=== PATIENT | female | born 1975 | race Hispanic/Latino ===

== ENCOUNTER 2021-06-09 07:11 | Outpatient (CLI) | payer BC ==
--- NOTE | 2021-06-09 10:28 | Magnetic Resonance Report ---
MR brain wo/w con INDICATION / CLINICAL INFORMATION: 45 years Female; OPTIC NEURITIS. TECHNIQUE: Multiplanar, multisequence MR images of the brain were obtained. COMPARISON: None available. FINDINGS: BRAIN / INTRACRANIAL CONTENTS: The brain demonstrate appropriate signal characteristics on the combin ation of sequences. The ventricular system is within normal limits in size and configuration. No extr a-axial fluid collections or significant mass effect is identified. The diffusion imaging is unremark able without evidence of recent infarction. No intracranial enhancing lesions are appreciated at. CRANIOCERVICAL JUNCTION: No significant abnormality. VASCULAR FLOW-VOIDS: No significant abnormality. ORBITS: There are dictated pre and postcontrast axial and coronal T1 and T2-weighted imaging of the o rbits were obtained as part of this exam. The motion degrades image quality. However, there is sugges tion of mild relative enhancement involving right optic nerve that this may be exacerbated by the deg ree of motion and positioning though correlation would be needed given the patient's history of optic neuritis. The optic globes demonstrate appropriate size and configuration. No intravitreous lesions are identif ied at. The extraocular muscles are normal in caliber and symmetric. No focal orbital lesions are skip ntified. The lacrimal glands are unremarkable. No suprasellar lesions or mass effect upon the optic c hiasm is identified. SINUSES / MASTOIDS: No significant abnormality in the visualized paranasal sinuses or mastoid air alisha ls. ADDITIONAL FINDINGS: None. IMPRESSION: 1. The motion degrades image quality at. However, there is suggestion of subtle relative enhancement of the right optic nerve and correlation would be needed given the patient's history of optic neuriti s. 2. The MRI the brain and orbits is otherwise unremarkable. Signer Name: Ramon Lino MD Signed: 06/09/2021 10:24 AM Workstation Name: [id number]
== END 2021-06-09 07:12 | disposition home or self-care (01) ==
LOC: MRI 07:11
PROVIDERS: ATTEND Internal Medicine
DX: H46.9 Unspecified optic neuritis (principal)
CPT/HCPCS: 70553; A9575